=== PATIENT | male | born 1975 | race African-American/Black ===

== ENCOUNTER 2018-08-05 09:40 | Emergency (ER) | payer SELFPAY ==
[~2018-08-05] VITALS: Ht 180.3 cm; Wt 160.0 kg
[2018-08-05 09:46] VITALS: BP 170/82
[2018-08-05] MEDS ORDERED: ALBUTEROL (0.083%) 2.5MG/3ML NEB HHN STA (10:08)
[2018-08-05] MEDS ORDERED: PREDNISONE 20MG TABLET PO STA (10:08)
[2018-08-05] MEDS ORDERED: IPRATROPIUM BROMIDE (0.02%) 0.5MG/2.5ML NEB HHN STA (10:08)
== END 2018-08-05 10:14 | disposition left against medical advice (07) ==
LOC: ER 10:05
DX: J44.1 Chronic obstructive pulmonary disease with (acute) exacerbation (principal); Z88.8 Allergy status to other drugs, medicaments and biological substances
CPT/HCPCS: 99283